=== PATIENT | female | born 1955 | race Caucasian/White ===

== ENCOUNTER → 2018-12-15 | Outpatient (CLI) | payer OTHER ==
--- NOTE | 2018-12-15 12:21 | 2DMMODE ---
[facility] [place] [place] [address] 2 D/M-MODE ECHOCARDIOGRAM Name: CHERYL ROMAN Room #: [facility] [id number] Admission: 12/15/18 Attend Phys: Mario Freedman Discharge: Date of : 59 Date of Service: 12/15/18 1221 Report #: [id number] THIS REPORT FOR: //name// APPROVED REPORT Study performed: 12/15/2018 10:40:45 EXAM: Comprehensive 2D, Doppler, and color-flow Echocardiogram Patient Location: Out-Patient Status: routine BSA: 1.78 HR: 81 bpm BP: 116/82 mmHg Rhythm: NSR Other Information Study Quality: Adequate Indications Palpitations Hx: HTN, HLP. 2D Dimensions RVDd: 34.76 mm IVSd: 12.34 (7-11mm) LVOT Diam: 19.60 (18-24mm) LVDd: 36.10 mm PWd: 9.34 (7-11mm) Ascending Ao: 30.68 (22-36mm) LVDs: 24.98 (25-40mm) Aortic Root: 35.71 mm Volumes Left Atrial Volume (Systole) Single Plane 4CH: 30.41 mL Single Plane 2CH: 32.77 mL LA ESV Index: 21.00 mL/m2 Aortic Valve AoV Peak Higinio.: 1.18 m/s AO Peak Gr.: 5.57 mmHg LVOT Max P.52 mmHg LVOT Max V: 0.94 m/s SUHAIL Vmax: 2.40 cm2 Mitral Valve E/A Ratio: 0.5 MV Decel. Time: 77.75 ms [facility] [address] [employer] [place] [address] 2 D/M-MODE ECHOCARDIOGRAM Name: CHERYL ROMAN Room #: [facility]#: [id number] Admission: 12/15/18 Attend Phys: Mario Freedman Discharge: Date of : 59 Date of Service: 12/15/18 1221 Report #: [id number] MV E Max Higinio.: 0.50 m/s MV A Higinio.: 0.98 m/s MV PHT: 22.55 ms IVRT: 69.20 ms Pulmonary Valve PV Peak Higinio.: 0.86 m/s PV Peak Gr.: 3.04 mmHg Pulmonary Vein P Vein S: 0.57 m/s P Vein A: 0.27 m/s P Vein D: 0.44 m/s P Vein A Dur.: 78.4 msec P Vein S/D Ratio: 1.30 Tricuspid Valve TR Peak Higinio.: 2.37 m/s RAP Estimate: 5.00 mmHg TR Peak Gr.: 22.53 mmHg PA Pressure: 28.00 mmHg Left Ventricle The left ventricle is normal size. There is normal LV segmental wall motion. Mild basal septal hypertrophy is present. Left ventricular systolic function is normal. LVEF is 55-60%. Mild diastolic dysfunction is present (impaired relaxation pattern). Right Ventricle The right ventricle is normal size. The right ventricular systolic function is normal. Atria The left atrium size is normal. The right atrium size is normal. Aortic Valve The aortic valve is normal in structure. No aortic regurgitation is present. There is no aortic valvular stenosis. Mitral Valve The mitral valve is normal in structure. There is no mitral valve regurgitation noted. No evidence of mitral valve stenosis. Tricuspid Valve The tricuspid valve is normal in structure. Trace to mild tricuspid regurgitation. Estimated PAP is 28mmHg. Pulmonic Valve The pulmonary valve is normal in structure. Trace pulmonic [facility] [address] [place] [address] 2 D/M-MODE ECHOCARDIOGRAM Name: CHERYL ROMAN Room #: REG [facility]#: [id number] Admission: 12/15/18 Attend Phys: [facility] Discharge: Date of : 59 Date of Service: 12/15/18 1221 Report #: [id number] regurgitation. Great Vessels The aortic root is normal in size. The ascending aorta is normal in size. IVC is normal in size and collapses >50% with inspiration. Pericardium There is no pericardial effusion. <Conclusion> The left ventricle is normal size. LVEF is 55-60%. The aortic valve is normal in structure. The mitral valve is normal in structure. The tricuspid valve is normal in structure. Trace to mild tricuspid regurgitation. Estimated PAP is 28mmHg. The pulmonary valve is normal in structure. Trace pulmonic regurgitation. There is no pericardial effusion. <ELECTRONICALLY SIGNED> By: Arsalan Silva MD 12/15/18 1221 1221 122 Arsalan Silva MD /INF
== END ==
LOC: CV 10:49
DX: I36.1 Nonrheumatic tricuspid (valve) insufficiency (principal); E78.5 Hyperlipidemia, unspecified; I11.9 Hypertensive heart disease without heart failure; Z88.8 Allergy status to other drugs, medicaments and biological substances; Z91.040 Latex allergy status